=== PATIENT | female | born 1985 | race Caucasian/White ===

== ENCOUNTER 2018-09-30 23:02 | Inpatient (IN) | payer BC, MEDICARE ==
[~2018-09-30] VITALS: Ht 170.2 cm; Wt 60.3 kg
--- OUTSIDE RECORDS SUMMARY | 2018-09-30 23:04 | XMS REPORT | Continuity of Care Document ---
Author Author [facility] Organization [facility] Address [address] [place] [address] Phone Unavailable Care Team Providers Care Shale Miner Name Role Phone PHYSICIAN, NO PCP Unavailable Insurance Providers Guarantor [employer] Address [address] [place] [address] Email NONE Payer Self Pay Insurance Subscriber's Name Live Self Relationship Self / Same As Patient Group Number NA Group Name NA Advance Directives Directive Response Recorded Date/Time Patient/Family Given Education Material R/T Directives? Y - 05/30/18..AW 05/30/18 2:23pm Chief Complaint and Reason for Visit Chief Complaint Abdominal/GI/Nausea/Vomiting Reason for Visit Mesenteric adenitis [id number] Nausea Problems Active ProblemsNo active problem information available. Past Problems Medical Problem Onset Date Status Diverticula, intestine Unknown Acute Mesenteric adenitis Unknown Acute Nausea Unknown Acute Medications No medication information available. Social History Smoking Status Start Date Stop Date Never smoker Hospital Discharge Instructions No hospital discharge instruction information available. Plan of Care Discharge Date 05/30/18 6:47pm Instructions/Education Provided Mesenteric Adenitis, Adult Diverticulosis Forms Provided Portal Welcome Letter Prescriptions See Medication Section Referrals NO PHYSICIAN Additional Instructions/Education CIPRO 500MG TAB 1 BY MOUTH EVERY 12 HOURS X 7 DAYS. ZOFRAN 4MG TAB 1 BY MOUTH EVERY 4-6 HOURS NEEDED FOR NAUSEA #15. TRAMADOL 50MG TAB 1 [facility] MOUTH EVERY 4-6 HOURS NEEDED FOR PAIN#20. FOLLOW UP WITH YOUR GI SPECIALIST IN AM FOLLOW UP WITH YOUR PRIMARY CARE PROVIDER IN 2-3 DAY RETURN TO THE ER IF YOUR SYMPTOMS WORSEN Functional Status No functional status information available. Allergies, Adverse Reactions, Alerts Allergen Type Severity Reaction Status Last Updated Ampicillin ([id number]) Allergy Severe Active 05/30/18 Cefazolin Allergy Severe Active 05/30/18 Erythromycin ([id number]) Allergy Severe Active 06/06/11 Sulfacetamide ([id number]) Allergy Severe Active 05/30/18 Immunizations No immunization information available. Vital Signs Acute Vital Signs Vital Response Date/Time Blood Pressure 116/64 mm Hg 05/30/2018 6:47pm Pulse Pulse Rate (adult) 83 beats per minute (60 - 100) 05/30/2018 6:47pm Respiratory Rate 18 breaths per minute (10 - 24) 05/30/2018 6:47pm Temperature Source Oral 05/30/2018 6:47pm Height 5 ft 7 in 05/30/2018 2:23pm Weight 150 lb 05/30/2018 2:23pm Body Mass Index 23.5 kg/m^2 05/30/2018 2:23pm Results Laboratory Results Test Name Result Units Flags Reference Collection Date/Time Result Date/Time Comments White Blood Count 9.0 K/ul 4.0-11.5 05/30/2018 2:31pm 05/30/2018 2:56pm Red Blood Count 4.56 M/ul 3.80-5.20 05/30/2018 2:31pm 05/30/2018 2:56pm Hemoglobin 14.0 g/dl 10.5-15.7 05/30/2018 2:31pm 05/30/2018 2:56pm Hematocrit 40.1 % 34.0-50.0 05/30/2018 2:31pm 05/30/2018 2:56pm Mean Corpuscular Volume 87.9 fl 78-98 05/30/2018 2:31pm 05/30/2018 2:56pm Mean Corpuscular Hemoglobin 30.6 pg 26.2-33.4 05/30/2018 2:31pm 05/30/2018 2:56pm Mean Corpuscular Hemoglobin Concent 34.8 g/dl 31.5-36.2 05/30/2018 2:31pm 05/30/2018 2:56pm Red Cell Distribution Width 11.6 % 11.5-15.5 05/30/2018 2:31pm 05/30/2018 2:56pm Platelet Count 275 K/ul 137-338 05/30/2018 2:31pm 05/30/2018 2:56pm Mean Platelet Volume 8.3 fl L 8.4-11.8 05/30/2018 2:31pm 05/30/2018 2:56pm Neutrophils (%) (Auto) 77.9 % 44.4-80.1 05/30/2018 2:31pm 05/30/2018 2:56pm Lymphocytes (%) (Auto) 16.8 % 10.0-50.0 05/30/2018 2:31pm 05/30/2018 2:56pm Monocytes (%) (Auto) 4.3 % 3.6-12.04 05/30/2018 2:31pm 05/30/2018 2:56pm Eosinophils (%) (Auto) 0.1 % 0.0-5.41 05/30/2018 2:31pm 05/30/2018 2:56pm Basophils (%) (Auto) 0.9 % H 0.0-0.79 05/30/2018 2:31p 05/30/2018 2:56pm Urine Color YELLOW 05/30/2018 2:31p 05/30/2018 3:00pm Urine Appearance CLEAR CLEAR 05/30/2018 2:31p 05/30/2018 3:00pm Urine Glucose NEGATIVE NEGATIVE 05/30/2018 2:31p 05/30/2018 3:00pm Urine Bilirubin NEGATIVE NEGATIVE 05/30/2018 2:31p 05/30/2018 3:00pm Urine Ketones NEGATIVE NEGATIVE 05/30/2018 2:31p 05/30/2018 3:00pm Urine Specific Leming 1.015 1.003-1.030 05/30/2018 2:31p 05/30/2018 3:00pm Urine Blood MODERATE H NEGATIVE 05/30/2018 2:31p 05/30/2018 3:00pm Urine pH 8.500 5-9 05/30/2018 2:31p 05/30/2018 3:00pm Urine Protein NEGATIVE NEGATIVE 05/30/2018 2:31p 05/30/2018 3:00pm Urine Urobilinogen 0.2 E.U./dL 0.2-1.0 05/30/2018 2:31p 05/30/2018 3:00pm Urine Nitrate NEGATIVE NEGATIVE 05/30/2018 2:31p 05/30/2018 3:00pm Urine Leukocyte Esterase NEGATIVE NEGATIVE 05/30/2018 2:31p 05/30/2018 3:00pm Urine RBC 11-14 /hpf H 0-5 05/30/2018 2:31p 05/30/2018 3:00pm Urine WBC <1 /hpf 0-5 05/30/2018 2:31p 05/30/2018 3:00pm Urine Epithelial Cells 1-5 /hpf 0-5 05/30/2018 2:31p 05/30/2018 3:00pm Urine Bacteria TRACE /hpf None Detect 05/30/2018 2:31p 05/30/2018 3:00pm Urine Casts 2-5 /lpf None Detect 05/30/2018 2:31p 05/30/2018 3:00pm Urine Culture Reflexed NO 05/30/2018 2:31p 05/30/2018 3:00pm Random Glucose 118 mg/dL H 74-106 05/30/2018 2:31p 05/30/2018 3:06pm Blood Urea Nitrogen 11 mg/dL 6-05/30/2018 2:31p 05/30/2018 3:06pm Serum Osmolality 282 280-300 05/30/2018 2: 05/30/2018 3:06pm Creatinine 0.6 mg/dL 0.50-0.90 05/30/2018 2: 05/30/2018 3:06pm Glomerular Filtration Rate Calc > 60.00 05/30/2018 2:31p 05/30/2018 3:06pm GFR RESULTS ARE REPORTED IN mL/min/1.73m2. Normal GFR: >60mL/min Moderately decreased GFR: 30-59 mL/min Severely decreased GFR: 15-29 mL/min Kidney Failure (or Dialysis): <15 mL/min The calculated eGFR is not valid for patients younger than 18 years or older than 75 years. BUN/Creatinine Ratio 18.3 12-05/30/2018 2:31pm 05/30/2018 3:06pm Sodium Level 141 mmol/L 135-145 05/30/2018 2:31p 05/30/2018 3:06pm Potassium Level 4.0 mmol/L 3.5-5.2 05/30/2018 2:31p 05/30/2018 3:06pm Chloride Level 100 mmol/L 98-108 05/30/2018 2:31pm 05/30/2018 3:06pm Carbon Dioxide Level 25 mmol/L 21-32 05/30/2018 2:31pm 05/30/2018 3:06pm Anion Gap 20.0 mEq/L 12-20 05/30/2018 2:31pm 05/30/2018 3:06pm Calcium Level 10.1 mg/dL H 8.6-10.0 05/30/2018 2:31pm 05/30/2018 3:06pm Magnesium Level 1.7 mg/dL 1.6-2.6 05/30/2018 2:31pm 05/30/2018 3:06pm Total Protein 8.0 g/dL 6.6-8.7 05/30/2018 2:31pm 05/30/2018 3:06pm Albumin 5.3 g/dL H 3.5-5.2 05/30/2018 2:31p 05/30/2018 3:06pm Globulin 2.7 gm/dL 05/30/2018 2:31p 05/30/2018 3:06pm Albumin/Globulin Ratio 2.0 >1.0 05/30/2018 2:31p 05/30/2018 3:06pm Total Bilirubin 0.4 mg/dL 0.0-1.2 05/30/2018 2:31p 05/30/2018 3:06pm Aspartate Amino Transf (AST/SGOT) 18 U/L 15-32 05/30/2018 2:31pm 05/30/2018 3:06pm TEST RESULT INTERFERENCE DUE TO HEMOLYSIS. Alanine Aminotransferase (ALT/SGPT) 12 U/L 0-33 05/30/2018 2:31pm 05/30/2018 3:06pm Amylase Level 51 U/L 28-100 05/30/2018 2:31pm 05/30/2018 3:06pm Lipase 30 U/L 13-60 05/30/2018 2:31pm 05/30/2018 3:06pm Total Alkaline Phosphatase 97 U/L 35-105 05/30/2018 2:31pm 05/30/2018 3:06pm Procedures Procedure Status Date Provider(s) Computed tomography of abdomen and pelvis with contrast Completed 05/30/18 NIRAJ DICK [employer] Non-obstetrical transvaginal ultrasound of pelvis Completed 05/30/18 NIRAJ DICK [employer] Encounters Encounter Location Arrival/Admit Date Discharge/Depart Date Attending Provider Departed Emergency Room [facility] 05/30/18 2:16pm 05/30/18 6:47pm LEIGH LYONS MD Recent Diagnosis
--- OUTSIDE RECORDS SUMMARY | 2018-09-30 23:04 | XMS REPORT ---
Author Author [facility] Address Unknown Phone Unavailable Care Team Providers Care Coding Support Specialist Name Role Phone Biju Catalan Unavailable Unavailable Dave Taylor Unavailable Unavailable Yovani Archibald Unavailable Unavailable Problems This patient has no known problems. Allergies, Adverse Reactions, Alerts This patient has no known allergies or adverse reactions. Medications This patient has no known medications. Results Test Description Test Time Test Comments Text Results Atomic Results Result Comments Urine drug screen 2018-09-30 11:47:00 Phencyclidine [Presence] in Urine by Screen method (test nyfy=89101-6) Negative NEGATIVE CUT-OFF LEVEL: 25 ng/mL Benzodiazepines [Presence] in Urine by Screen method (test xhpg=76956-9) Negative NEGATIVE CUT-OFF LEVEL: 200 ng/mL Benzoylecgonine [Presence] in Urine by Screen method (test eozh=66225-9) Negative NEGATIVE CUT-OFF LEVEL: 300 ng/mL Amphetamines [Presence] in Urine by Screen method (test exmf=41668-8) Negative NEGATIVE CUT-OFF LEVEL: 1000 ng/mL Cannabinoids [Presence] in Urine by Screen method (test lqpk=40954-6) Positive NEGATIVE CUT-OFF LEVEL: 50 ng/mL Opiates [Presence] in Urine by Screen method (test ujmx=54281-3) Positive NEGATIVE CUT-OFF LEVEL: 2000 ng/mL Barbiturates [Presence] in Urine by Screen method (test chww=87263-4) Negative NEGATIVE CUT-OFF LEVEL: 200 ng/mL Screening urine methadone detection using 300 ng/ml cutoff (test enlg=66849-6) Negative NEGATIVE CUT-OFF LEVEL: 300 ng/mL These results are screening test methodology and are to be used only for medical purposes. Positive results have not been confirmed. Unconfirmed screening results must not be used for non-medical purposes (employment or legal testing). For a confirmed analytical result, GM/MS is the preferred method and must be sent to a Reference Laboratory. Comment Bed:14 Test Ordered to Rule Out VTE/DVT? VEanubojirb2083-69-45 10:33:00 * Test Item Value Reference Range Comments Urine color (test eovx=9855-3) YELLOW Urine appearance determination (test vaqj=9037-5) CLEAR Urine specific gravity measurement (test gtlo=9928-0) 1.015 1.005-1.030 Urine glucose detection (test jsiw=1469-9) Negative NEG Urine bilirubin detection (test uzwu=7251-4) Negative NEG Urine Ketones (test code=UKET) 2+ NEG Urine blood detection (test yuur=33099-5) Negative NEG Urine pH (test inbc=8582-6) 7.0 5.0-7.0 Urinalysis with microscopy (test giww=40419-2) NEGATIVE NEG Urine urobilinogen detection (test gscf=61210-4) 0.2 0.2-1.0 Urine Nitrate (test code=UNIT) NEGATIVE NEG Urine Leukocyte Esterase (test code=UESTR) NEGATIVE NEG Primary Language EnglishSalicylates [Mass/volume] in Serum or Wyiepi0533-52-77 08:37:00* Test Item Value Reference Range Comments Salicylates [Mass/volume] in Serum or Plasma (test zkot=9608-0) <1.7 mg/dL 2.8-20 Test Ordered to Rule Out VTE/DVT? NAbdomen Acute Sdjnvl0032-39-41 08:31:00[facility] [place] [address] RAD[facility]OLOGY SERVICES REPORT Name: LIVE ROWLEY Acct Number: [id number] :1985 Age:33 Sex:F Ord Phys: Sumeet Garcia MD Unit Number: [id number] [facility] Dr: GABO Status: ADM IN [place] [id number] Exam Date: 09/30/18 EXAM DESCR IPTION: RAD - Abdomen Acute Series - 09/30/2018 8:14 am CLINICAL HISTORY: Abdominal pain FINDINGS: The bowel gas pattern is unremarkable. F ree air is not seen beneath the diaphragm. Lungs appear clear. Multi ple calcifications are present the pelvis. These may all represent phleboliths. Signed By: Harman Taylor MD Signed AT: 09/30/18 0832 Abdomen Exam Mnyyxfi9654-51-59 08:29:00[place] [address] RADIOLOGY SERVICES REPORT Name: LIVE ROWLEY Acct Number: [id number] :1985 Age:33 Sex:F Ord Phys: Sumeet Garcia MD Unit Number: [id number] [facility] [address]: GABO Status: ADM IN [place] [address] Exam Date: 09/30/18 EXAM DESCRIPTION: US - Abdomen Exam Limited - 09/30/2018 8:23 am CLINICAL HISTORY: Abdominal pain. COMPARISON: None. FINDINGS: The gallbladder wall is not thickened. A gallstone is not seen. The biliary tree is normal caliber. IMPRESSION: Unremarkable gallbladder ultrasound. Signed By: Harman Taylor MD Signed AT: 09/30/18 0830 Ethanol [Mass/volume] in Serum or Plasma 2018-09-30 08:17:00* Test Item Value Reference Range Comments Ethanol [Mass/volume] in Serum or Plasma (test ocuw=1845-2) <3 mg/dL <3 (No normal range; <50 has limited clinical effect) Lactate [Moles/volume] in Serum or Xvyvzi9851-35-46 08:16:00* Test Item Value Reference Range Comments Lactate [Moles/volume] in Serum or Plasma (test ivii=5464-6) 1.2 mmol/L 0.4-2.0 Comment Bed:14Creatinine [Mass/volume] in Serum or Tzocpr5782-59-80 08:06:00* Test Item Value Reference Range Comments Creatinine [Mass/volume] in Serum or Plasma (test iynf=5012-9) 0.70 mg/dL 0.55-1.3 Glomerular Filtration Rate (test code=GFRT) > 90 >60 FOR CHRONIC KIDNEY DISEASE: GFR STAGE >60 1 or 2 30-59 3 15-29 4 <15(or dialysis) 5 The Glomerular Filtration Rate (GFR) has been calculated using the IDMS-Traceable MDRD Study Equation. Basic Metabolic Pueis8235-26-75 08:01:00* Test Item Value Reference Range Comments Serum or plasma sodium measurement (moles/volume) (test fqvi=7666-4) 141 mmol/L 136-145 Potassium [Moles/volume] in Serum or Plasma (test cckj=0828-9) 3.1 mmol/L 3.5-5.1 Chloride [Moles/volume] in Serum or Plasma (test hiiu=0431-3) 107 mmol/L 98-107 Carbon dioxide, total [Moles/volume] in Serum or Plasma (test zisv=1468-9) 27 mmol/L 21-32 Glucose [Mass/volume] in Serum or Plasma (test wgwu=0489-9) 124 mg/dL 74-106 Urea nitrogen [Mass/volume] in Serum or Plasma (test bdjp=9359-4) 10 mg/dL 7-18 Creatinine [Mass/volume] in Serum or Plasma (test kzvv=0091-5) 0.74 mg/dL 0.55-1.3 Glomerular Filtration Rate (test code=GFR) 90 mL =/>90 FOR CHRONIC KIDNEY DISEASE: GFR STAGE DESCRIPTION=/>90 STAGE 1 NORMAL--OR-- MINIMAL KIDNEY DAMAGE WITH NORMAL GFR 60-89 STAGE 2 MILD DECREASE IN GFR 30-59 STAGE 3 MODERATE DECREASE IN GFR 15-29 STAGE 4 SEVERE DECREASE IN GFR <15 STAGE 5 KIDNEY FAILURE The Glomerular Filtration Rate (GFR) has been calculated using the IDMS-Traceable MDRD Study Equation. Calcium [Mass/volume] in Serum or Plasma (test rpkb=39301-9) 8.7 mg/dL 8.5-10.1 Comment Bed:Liver (Hepatic) Isjblzbu5549-39-85 08:01:00* Test Item Value Reference Range Comments Aspartate aminotransferase [Enzymatic activity/volume] in Serum or Plasma by With P-5 (test ynud=63480-5) 14 U/L 15-37 Alanine aminotransferase [Enzymatic activity/volume] in Serum or Plasma by With P-5'- (test hwom=1190-2) 21 U/L 12-78 Alkaline phosphatase [Enzymatic activity/volume] in Serum or Plasma (test dnsz=2507-5) 46 U/L 45-117 Bilirubin.total [Mass/volume] in Serum or Plasma (test ukuu=0637-9) 0.5 mg/dL 0.2-1.0 Bilirubin.direct [Mass/volume] in Serum or Plasma (test tfcz=1313-2) 0.1 mg/dL 0-0.2 Protein [Mass/volume] in Serum or Plasma (test bahw=1006-2) 7.1 g/dL 6.4-8.2 Albumin [Mass/volume] in Serum or Plasma by Bromocresol purple (BCP) dye binding meth (test sydw=99910-1) 4.4 g/dL 3.4-5.0 Globulin (test code=GLOB) 2.7 g/dL 2.3-3.5 Albumin/Globulin Ratio (test code=A/G) 1.6 1.1-1.8 Comment Bed:14Acetaminophen [Mass/volume] in Serum or Zdscni5233-70-10 08:01:00 * Test Item Value Reference Range Comments Acetaminophen [Mass/volume] in Serum or Plasma (test iygj=3256-2) <2.0 ug/mL 10.0-30.0 PANIC VALUES: AFTER 4 HRS. INGESTION RESULT >200 AFTER 12 HRS. INGESTION RESULT >50 Comment Bed:14Lipase [Enzymatic activity/volume] in Serum or Rczbsy5487-27-98 08:01:00* Test Item Value Reference Range Comments Lipase [Enzymatic activity/volume] in Serum or Plasma (test wtwp=1792-4) 161 U/L 73-393 Comment Bed:14Prothrombin time (PT) with international normalized ratio (INR) 2018-09-30 08:00:00* Test Item Value Reference Range Comments PT Prothrombin Time (test code=PROTIME) 13.0 s 9.5-12.5 INR in Blood by Coagulation assay (test lgmm=57890-5) 1.11 Monitor pts using INR value (not prothrombin time) INR Coumadin Therapy: Low Range (prophylaxis) 2.0-3.0 High Range (high risk of clot formation) 2.5-3.5 Test Ordered to Rule Out VTE/DVT? N NPTT, Activated Partial Vvlgah6620-25-45 08:00:00* Test Item Value Reference Range Comments PTT, Activated Partial Thromb (test code=PTT) 28.1 s 24.3-36.9 Test Ordered to Rule Out VTE/DVT? N NComplete blood count (CBC) with automated white blood cell (WBC) bqkvnifskewk5540-67-85 07:41:00* Test Item Value Reference Range Comments White blood cell count (test zywl=OKE0952) 5.3 4.3-10.9 Blood erythrocytes count (number/volume) (test hfgv=49318-4) 3.80 M/ul 3.86-4.86 Hemoglobin measurement (test jjka=FVV9938) 11.6 g/dL 12.0-15.0 Blood hematocrit (volume fraction) (test wogb=21631-4) 34.4 % 36.0-45.0 MCV (test zrmg=XLM0302) 90.5 fL 80-100 30.4 MCHC (test code=MCHC) 33.6 g/dL 32.0-36.0 Platelets (test code=PLT) 232 152-406 Red Cell Distribution Width (test code=RDW) 14.2 % 12.1-15.2 Blood platelet mean volume (test zsgy=43641-5) 9.6 fL 7.6-11.3 Neutrophils % (test code=GARTH%) 65.7 % 41.7-73.7 Lymphocytes/leuk NFr Bld (test zsry=00532-9) 27.5 % 15.3-44.8 Monocyte percentage (test vbaq=7267-7) 6.3 % 3.3-12.3 Eosinophil % (test mixe=306-0) 0.0 % 0-4.4 Basophil % (test dsge=41037-3) 0.5 % 0-1.3 Absolute neutrophil count (test grmq=821-2) 3.4 1.8-8.0 Absolute lymphocyte count (test ccxn=57304-9) 1.4 0.7-4.9 Absolute monocyte count (test mldj=794-7) 0.3 0.1-1.3 Absolute Eosinophils (test code=EOA) 0.0 0-0.5 Absolute Basophils (test code=BASA) 0.0 0-0.5 Urine test at point of yivx5995-40-82 10:21:00* Test Item Value Reference Range Comments Urine Test (test code=UPG) NEG NEG Urine specific gravity measurement (test thhf=5191-9) 1.015 1.005-1.030 Tested by: BLOOD: TRACE GLUCOSE: NEG KETONES: TRACE LEUKOCYTES: NEG NITRITE: NEG PH: 7.0 PROTEIN: 1+ dh NEG dh TRACE NEG TRACE NEG NEG 7.0 1+ Y 1.015Urine dipstick testing at rceku-bp-ywxo2004-02-09 10:21:00* Test Item Value Reference Range Comments Urine glucose detection (test uybd=9663-3) Negative NEG Urine Ketones (test code=UKET) TRACE NEG Urine blood detection (test mcwz=77410-7) TRACE NEG Urine pH (test dklj=7649-1) 7.0 5.0-7.0 Urinalysis with microscopy (test zfzx=88178-3) 1+ NEG Urine Nitrate (test code=UNIT) NEGATIVE NEG Urine Leukocyte Esterase (test code=UESTR) NEGATIVE NEG Tested by: BLOOD: TRACE GLUCOSE: NEG KETONES: TRACE LEUKOCYTES: NEG NITRITE: NEG PH: 7.0 PROTEIN: 1+ dh NEG dh TRACE NEG TRACE NEG NEG 7.0 1+ Y 1.015Basic Metabolic Jhjnf1599-95-15 07:59:00* Test Item Value Reference Range Comments Serum or plasma sodium measurement (moles/volume) (test agvo=4512-0) 142 mmol/L 136-145 Potassium [Moles/volume] in Serum or Plasma (test nazk=5029-4) 4.2 mmol/L 3.5-5.1 Chloride [Moles/volume] in Serum or Plasma (test pfrp=4624-7) 108 mmol/L 98-107 Carbon dioxide, total [Moles/volume] in Serum or Plasma (test mgnx=4326-4) 26 mmol/L 21-32 Glucose [Mass/volume] in Serum or Plasma (test lzme=7419-9) 114 mg/dL 74-106 Urea nitrogen [Mass/volume] in Serum or Plasma (test zcuc=4945-6) 11 mg/dL 7-18 Creatinine [Mass/volume] in Serum or Plasma (test jmay=2661-2) 0.79 mg/dL 0.55-1.3 Glomerular Filtration Rate (test code=GFR) 83 mL =/>90 FOR CHRONIC KIDNEY DISEASE: GFR STAGE DESCRIPTION=/>90 STAGE 1 NORMAL--OR-- MINIMAL KIDNEY DAMAGE WITH NORMAL GFR 60-89 STAGE 2 MILD DECREASE IN GFR 30-59 STAGE 3 MODERATE DECREASE IN GFR 15-29 STAGE 4 SEVERE DECREASE IN GFR <15 STAGE 5 KIDNEY FAILURE The Glomerular Filtration Rate (GFR) has been calculated using the IDMS-Traceable MDRD Study Equation. Calcium [Mass/volume] in Serum or Plasma (test vcxp=06980-5) 9.9 mg/dL 8.5-10.1 Comment Bed:15Liver (Hepatic) Yyaoxfpf2126-49-94 07:59:00* Test Item Value Reference Range Comments Aspartate aminotransferase [Enzymatic activity/volume] in Serum or Plasma by With P-5 (test bknd=38296-4) 14 U/L 15-37 Alanine aminotransferase [Enzymatic activity/volume] in Serum or Plasma by With P-5'- (test ghhi=7223-1) 17 U/L 12-78 Alkaline phosphatase [Enzymatic activity/volume] in Serum or Plasma (test zbut=9622-7) 57 U/L 45-117 Bilirubin.total [Mass/volume] in Serum or Plasma (test fknr=6581-7) 0.4 mg/dL 0.2-1.0 Bilirubin.direct [Mass/volume] in Serum or Plasma (test irsz=1749-2) 0.1 mg/dL 0-0.2 Protein [Mass/volume] in Serum or Plasma (test glvj=1602-2) 8.5 g/dL 6.4-8.2 Albumin [Mass/volume] in Serum or Plasma by Bromocresol purple (BCP) dye binding meth (test smor=95350-9) 5.0 g/dL 3.4-5.0 Globulin (test code=GLOB) 3.5 g/dL 2.3-3.5 Albumin/Globulin Ratio (test code=A/G) 1.4 1.1-1.8 Comment Bed:15Lipase [Enzymatic activity/volume] in Serum or Zhvydm1647-62-29 07:59:00* Test Item Value Reference Range Comments Lipase [Enzymatic activity/volume] in Serum or Plasma (test jxll=9305-4) 168 U/L 73-393 Comment Bed:15Complete blood count (CBC) with automated white blood cell (WBC) whveegqqacwm4931-02-18 07:49:00* Test Item Value Reference Range Comments White blood cell count (test epre=TAM3252) 8.3 4.3-10.9 Blood erythrocytes count (number/volume) (test wkaa=32683-5) 4.69 M/ul 3.86-4.86 Hemoglobin measurement (test yajj=UWR4306) 14.2 g/dL 12.0-15.0 Blood hematocrit (volume fraction) (test vgmt=49483-5) 41.8 % 36.0-45.0 MCV (test syas=PVU6754) 89.2 fL 80-100 30.2 MCHC (test code=MCHC) 33.9 g/dL 32.0-36.0 Platelets (test code=PLT) 259 152-406 Red Cell Distribution Width (test code=RDW) 13.6 % 12.1-15.2 Blood platelet mean volume (test cvsn=66927-2) 9.8 fL 7.6-11.3 Neutrophils % (test code=GARTH%) 81.7 % 41.7-73.7 Lymphocytes/leuk NFr Bld (test ntzv=99993-8) 13.7 % 15.3-44.8 Monocyte percentage (test axdf=2258-4) 4.0 % 3.3-12.3 Eosinophil % (test kkpm=331-7) 0.3 % 0-4.4 Basophil % (test pyvc=21472-3) 0.3 % 0-1.3 Absolute neutrophil count (test gcec=889-5) 6.8 1.8-8.0 Absolute lymphocyte count (test gxwu=19414-6) 1.1 0.7-4.9 Absolute monocyte count (test yzth=957-6) 0.3 0.1-1.3 Absolute Eosinophils (test code=EOA) 0.0 0-0.5 Absolute Basophils (test code=BASA) 0.0 0-0.5 Abdomen Pelvis W Nlqkfyvb3040-02-86 12:31:00[place] [address] RADIOLOGY SERVICES REPORT Name: LIVE ROWLEY Acct Number: [id number] :1985 Age:33 Sex:F Ord Phys: Yovani Archibald MD Unit Number: [id number] [place] : GABO Status: REG ER Exam Date: 09/13/18 EXAM DESCRIPTION: CTAbdomen Pelvis W Contrast - 09/13/2018 12:21 pm CLINICAL HISTORY: Abdominal pain. epigastric - possible hernia;Abd pain COMPARISON: Abdomen Pelvis W Contrast dated 06/05/2018 TECHNIQUE: Biphasic CT imaging of the abdomen and pelvis was performed with 100 ml non-ionic IV contrast. All CT scans are performed using dose optimization technique as appropriate and may include automated exposure control or mA/KV adjustment according to patient size. FINDINGS: The lung bases are clear. The liver, spleen, pancreas, adrenal glands and kidneys are within normal limits. No bowel obstruction, free air, free fluid or abscess. The appendix is not identified as a discrete structure, however, no secondary findings of appendicitis are identified. No evidence of significant lymphadenopathy. No suspicious bony findings. IMPRESSI ON: No acute intra-abdominal or pelvic finding. Signed By: Ryley Faust MD Signed AT: 09/13/18 1231 Basic Metabolic Panel 2018-09-13 11:17:00* Test Item Value Reference Range Comments Serum or plasma sodium measurement (moles/volume) (test ebsm=0781-8) 141 mmol/L 136-145 Potassium [Moles/volume] in Serum or Plasma (test ltnh=4977-9) 3.8 mmol/L 3.5-5.1 Chloride [Moles/volume] in Serum or Plasma (test yvvk=6237-3) 108 mmol/L 98-107 Carbon dioxide, total [Moles/volume] in Serum or Plasma (test myji=9856-3) 26 mmol/L 21-32 Glucose [Mass/volume] in Serum or Plasma (test ujhl=7445-7) 94 mg/dL 74-106 Urea nitrogen [Mass/volume] in Serum or Plasma (test jwdr=2146-1) 11 mg/dL 7-18 Creatinine [Mass/volume] in Serum or Plasma (test dnwh=2938-8) 0.64 mg/dL 0.55-1.3 Glomerular Filtration Rate (test code=GFR) > 90 =/>90 FOR CHRONIC KIDNEY DISEASE: GFR STAGE DESCRIPTION=/>90 STAGE 1 NORMAL--OR-- MINIMAL KIDNEY DAMAGE WITH NORMAL GFR 60-89 STAGE 2 MILD DECREASE IN GFR 30-59 STAGE 3 MODERATE DECREASE IN GFR 15-29 STAGE 4 SEVERE DECREASE IN GFR <15 STAGE 5 KIDNEY FAILURE The Glomerular Filtration Rate (GFR) has been calculated using the IDMS-Traceable MDRD Study Equation. Calcium [Mass/volume] in Serum or Plasma (test ulwr=55044-5) 9.3 mg/dL 8.5-10.1 Comment Bed:19Complete blood count (CBC) with automated white blood cell (WBC) msxvzvxglskc9760-33-67 11:10:00* Test Item Value Reference Range Comments White blood cell count (test wmuc=BDH9134) 6.0 4.3-10.9 Blood erythrocytes count (number/volume) (test svzn=48655-1) 4.37 M/ul 3.86-4.86 Hemoglobin measurement (test eldc=FYV6798) 13.1 g/dL 12.0-15.0 Blood hematocrit (volume fraction) (test thmk=31312-7) 38.8 % 36.0-45.0 MCV (test myxf=XDX8309) 88.7 fL 80-100 30.0 MCHC (test code=MCHC) 33.8 g/dL 32.0-36.0 Platelets (test code=PLT) 274 152-406 Red Cell Distribution Width (test code=RDW) 13.9 % 12.1-15.2 Blood platelet mean volume (test tkkc=41367-6) 9.8 fL 7.6-11.3 Neutrophils % (test code=GARTH%) 76.6 % 41.7-73.7 Lymphocytes/leuk NFr Bld (test bdus=33156-1) 18.9 % 15.3-44.8 Monocyte percentage (test idzv=5758-7) 4.2 % 3.3-12.3 Eosinophil % (test hmqg=408-6) 0.1 % 0-4.4 Basophil % (test rdsm=05996-2) 0.2 % 0-1.3 Absolute neutrophil count (test bhuf=090-3) 4.6 1.8-8.0 Absolute lymphocyte count (test dqgq=43414-0) 1.1 0.7-4.9 Absolute monocyte count (test rgcz=204-5) 0.3 0.1-1.3 Absolute Eosinophils (test code=EOA) 0.0 0-0.5 Absolute Basophils (test code=BASA) 0.0 0-0.5 Urine test at point of xolh6134-71-60 20:41:00* Test Item Value Reference Range Comments Urine Test (test code=UPG) NEG NEG Urine specific gravity measurement (test eoqh=7478-5) 1.020 1.005-1.030 Tested by: ao BLOOD: 1+ GLUCOSE: NEG KETONES: 3+ LEUKOCYTES: NEG NITRITE: NEG PH : 7.0 PROTEIN: NEG ao NEG ao 1+ NEG 3+ NEG NEG 7.0 NEG Y 1.020Urine dipstick testing at irgpq-db-cxfn4227-10-24 20:41:00* Test Item Value Reference Range Comments Urine glucose detection (test kxqo=6845-8) Negative NEG Urine Ketones (test code=UKET) 3+ NEG Urine blood detection (test zgpy=42207-4) 1+ NEG Urine pH (test kniy=5292-9) 7.0 5.0-7.0 Urinalysis with microscopy (test qbeh=56246-7) NEGATIVE NEG Urine Nitrate (test code=UNIT) NEGATIVE NEG Urine Leukocyte Esterase (test code=UESTR) NEGATIVE NEG Tested by: ao BLOOD: 1+ GLUCOSE: NEG KETONES: 3+ LEUKOCYTES: NEG NITRITE: NEG PH : 7.0 PROTEIN: NEG ao NEG ao 1+ NEG 3+ NEG NEG 7.0 NEG Y 1.020Complete blood count (CBC) with automated white blood cell (WBC) hdvgmrypvnph1407-81-78 19:31:00* Test Item Value Reference Range Comments White blood cell count (test rwja=SPN0301) 10.8 4.3-10.9 Blood erythrocytes count (number/volume) (test dhdg=49929-6) 4.32 M/ul 3.86-4.86 Hemoglobin measurement (test krld=QVD3587) 13.0 g/dL 12.0-15.0 Blood hematocrit (volume fraction) (test jupr=63907-8) 37.5 % 36.0-45.0 MCV (test giky=31010-4) 86.7 fL 80-100 MCH (test zgbc=00080-5) 30.1 pg 27.0-35.0 MCHC (test code=MCHC) 34.8 g/dL 32.0-36.0 Platelets (test code=PLT) 315 152-406 Red Cell Distribution Width (test code=RDW) 13.5 % 12.1-15.2 Blood platelet mean volume (test nmga=82046-2) 9.5 fL 7.6-11.3 Neutrophils % (test code=GARTH%) 88.7 % 41.7-73.7 Lymphocytes/leuk NFr Bld (test kxpv=35594-0) 8.5 % 15.3-44.8 Monocyte percentage (test mbgr=6048-8) 2.7 % 3.3-12.3 Eosinophil % (test suvv=924-4) 0.0 % 0-4.4 Basophil % (test aitu=31970-0) 0.1 % 0-1.3 Absolute neutrophil count (test tvzy=779-6) 9.6 1.8-8.0 Absolute lymphocyte count (test rysl=62460-3) 0.9 0.7-4.9 Absolute monocyte count (test atow=174-0) 0.3 0.1-1.3 Absolute Eosinophils (test code=EOA) 0.0 0-0.5 Absolute Basophils (test code=BASA) 0.0 0-0.5 Blood smear scan ([facility])2018-06-05 19:31:00* Test Item Value Reference Range Comments Blood morphology interpretation narrative (test ikiu=01772-9) NOT SEEN NOT SEEN Abdomen Pelvis W Pwicreka9028-76-70 19:09:00[place] [address] [facility]OLOGY SERVICES REPORT Name: LIVE ROWLEY Acct Number: [id number] :1985 Age:33 Sex:F Ord Phys: Jose Regalado Unit Number: [id number] [facility] Dr: NONE Status: REG ER ER Exam Date: 06/05/18 EXAM DESCRIPTION: CTAbdomen Pelvis W Contrast - 06/05/2018 6:56 pm CLINICAL HISTORY: Abdominal pain. iv only;Abd pain COMPARISON: No comparisons TECHNIQUE: Biphasic CT imaging of the abdomen and pelvis was performed with 100 ml non-ionic IV contrast. All CT scans are performed using dose optimization technique as appropriate and may include automated exposure control or mA/KV adjustment according to patient size. FINDINGS: The lung bases are clear. The liver, spleen, pancreas, adrenal glands and kidneys are within normal limits. No bowel obstruction, free air, free fluid or abscess. The appendix is normal. The terminal ileum appears mildly thickened with a few surrounding right lower quadrant lymph nodes seen. The cervix appears bulky and there is trace pe lvic free fluid. No suspicious bony findings. IMPRESSION: Terminal ileum thickening is seen with mild surrounding lymph nodes could indicate inflam matory bowel disease/Crohn's disease. Bulky cervix is seen with trace pelv ic free fluid. Advise correlation with Pap smear if not recently performed. Signed By: Ryley Faust MD Signed AT: 06/05/181908 Basic Metabolic Kkwwy2717-90-64 18:06:00* Test Item Value Reference Range Comments Serum or plasma sodium measurement (moles/volume) (test pnnb=9833-9) 139 mmol/L 136-145 Potassium [Moles/volume] in Serum or Plasma (test xjvj=9319-4) 3.2 mmol/L 3.5-5.1 Chloride [Moles/volume] in Serum or Plasma (test sdxq=7358-6) 105 mmol/L 98-107 Carbon dioxide, total [Moles/volume] in Serum or Plasma (test bbhr=4798-9) 24 mmol/L 21-32 Glucose [Mass/volume] in Serum or Plasma (test iska=1342-6) 151 mg/dL 74-106 Urea nitrogen [Mass/volume] in Serum or Plasma (test vown=2811-1) 10 mg/dL 7-18 Creatinine [Mass/volume] in Serum or Plasma (test pwgc=3349-6) 0.80 mg/dL 0.55-1.3 Glomerular Filtration Rate (test code=GFR) 82 mL =/>90 FOR CHRONIC KIDNEY DISEASE: GFR STAGE DESCRIPTION=/>90 STAGE 1 NORMAL--OR-- MINIMAL KIDNEY DAMAGE WITH NORMAL GFR 60-89 STAGE 2 MILD DECREASE IN GFR 30-59 STAGE 3 MODERATE DECREASE IN GFR 15-29 STAGE 4 SEVERE DECREASE IN GFR <15 STAGE 5 KIDNEY FAILURE The Glomerular Filtration Rate (GFR) has been calculated using the IDMS-Traceable MDRD Study Equation. Calcium [Mass/volume] in Serum or Plasma (test pive=89041-3) 9.5 mg/dL 8.5-10.1 Comment Bed:8Liver (Hepatic) Xgnkafoj4408-06-53 18:06:00* Test Item Value Reference Range Comments Aspartate aminotransferase [Enzymatic activity/volume] in Serum or Plasma by With P-5 (test bigv=33363-9) 14 U/L 15-37 Alanine aminotransferase [Enzymatic activity/volume] in Serum or Plasma by With P-5'- (test qcrp=3583-5) 19 U/L 12-78 Alkaline phosphatase [Enzymatic activity/volume] in Serum or Plasma (test xeiy=4882-2) 89 U/L 45-117 Bilirubin.total [Mass/volume] in Serum or Plasma (test wxbw=3013-8) 0.4 mg/dL 0.2-1.0 Bilirubin.direct [Mass/volume] in Serum or Plasma (test vzju=5053-1) 0.1 mg/dL 0-0.2 Protein [Mass/volume] in Serum or Plasma (test iupv=9157-7) 8.1 g/dL 6.4-8.2 Albumin [Mass/volume] in Serum or Plasma by Bromocresol purple (BCP) dye binding meth (test bhqa=01985-6) 4.3 g/dL 3.4-5.0 Globulin (test code=GLOB) 3.8 g/dL 2.3-3.5 Albumin/Globulin Ratio (test code=A/G) 1.1 1.1-1.8 Comment Bed:8Lipase [Enzymatic activity/volume] in Serum or [id number] 18:06:00* Test Item Value Reference Range Comments Lipase [Enzymatic activity/volume] in Serum or Plasma (test kcpa=8453-7) 129 U/L 73-393 Comment Bed:8Creatinine [Mass/volume] in Serum or [id number] 18:03:00* Test Item Value Reference Range Comments Creatinine [Mass/volume] in Serum or Plasma (test zwso=8902-4) 0.90 mg/dL 0.55-1.3 Glomerular Filtration Rate (test code=GFRT) 72 mL >60 FOR CHRONIC KIDNEY DISEASE: GFR STAGE >60 1 or 2 30-59 3 15-29 4 <15(or dialysis) 5 The Glomerular Filtration Rate (GFR) has been calculated using the IDMS-Traceable MDRD Study Equation.
[2018-09-30] MEDS ORDERED: PANTOPRAZOLE 40 MG 10ML VIAL IV STA (23:19)
[2018-09-30] MEDS ORDERED: ONDANSETRON HCL INJ 2MG/ML 2ML 2 MG/ML VIAL IV STA (23:19)
[2018-09-30] MEDS ORDERED: DICYCLOMINE HCL 20 MG/2 ML VIAL IM ONE (23:30)
[2018-09-30] MEDS ORDERED: SODIUM CHLORIDE 0.9% 1000ML 1,000 ML IV ONE (23:30)
[2018-09-30 23:34] LABS: BASOPHILS % 0.7 % (0.0-1.0); HEMATOCRIT 32.1 % (34.2-44.1); HEMOGLOBIN 11.2 g/dL (12.0-16.0); LYMPHOCYTES # (AUTO) 1.9 (1.0-3.2); MEAN CORPUSCULAR HEMOGLOBIN 30.5 pg (28-32); MEAN CORPUSCULAR HGB CONC 34.9 g/dL (31-35); MEAN CORPUSCULAR VOLUME 87.5 fL (81-99); MONOCYTES # (AUTO) 0.5 (0.2-0.8); MONOCYTES % 8.2 % (4.4-11.3); NEUTROPHILS # (AUTO) 3.3 (2.1-6.9); NEUTROPHILS % 57.9 % (38.7-80.0); PLATELET COUNT 243 x10e3/uL (140-360); RED BLOOD COUNT 3.67 x10e6/uL (3.6-5.1); RED CELL DISTRIBUTION WIDTH 12.8 % (11.7-14.4)
[2018-09-30] MEDS ORDERED: PROMETHAZINE HCL (IM) 25 MG/ML VIAL ONE (23:35)
[2018-09-30] MEDS ORDERED: PROMETHAZINE 25MG/ NS 50ML (IV) IV ONE (23:45)
[2018-09-30 23:57] LABS: ALANINE AMINOTRANSFERASE 16 IU/L (0-55); ALBUMIN 4.7 g/dL (3.5-5.0); ALBUMIN/GLOBULIN RATIO 2.2 (0.8-2.0); ALKALINE PHOSPHATASE 38 IU/L (40-150); AMYLASE 43 U/L (25-125); BLOOD UREA NITROGEN 7 mg/dL (7-26); BUN/CREATININE RATIO 9 (6-25); CALCIUM 9.4 mg/dL (8.4-10.2); CARBON DIOXIDE 22 mmol/L (22-29); CHLORIDE 103 mmol/L (98-107); CREATININE, SERUM 0.79 mg/dL (0.57-1.11); EST GLOMERULAR FILTRATION RATE > 60 ML/MIN (60-); GLUCOSE 109 mg/dL (74-118); LIPASE 43 U/L (8-78); SODIUM 139 mmol/L (136-145)
[2018-10-01 00:08] LABS: AMPHETAMINES SCREEN,URINE NEGATIVE (NEGATIVE); BENZODIAZEPINES SCREEN,URINE NEGATIVE (NEGATIVE); PHENCYCLIDINE SCREEN,URINE NEGATIVE (NEGATIVE)
[2018-10-01 00:09] LABS: CLARITY,URINE CLEAR (CLEAR); COLOR,URINE YELLOW (YELLOW); LEUKOCYTE ESTERASE ,URINE NEGATIVE (NEGATIVE)
[2018-10-01 00:10] LABS: BILIRUBIN,URINE NEGATIVE (NEGATIVE); KETONES,URINE 1+ (NEGATIVE); NITRITE,URINE NEGATIVE (NEGATIVE); PROTEIN,URINE DIPSTICK NEGATIVE (NEGATIVE); URINE UROBILINOGEN 0.2 mg/dL (0.2 - 1)
[2018-10-01 00:18] LABS: BACTERIA,URINE FEW /HPF; EPITHELIAL CELLS,URINE FEW /LPF; MUCUS,URINE MANY (RARE)
[2018-10-01] MEDS ORDERED: KCL 20MEQ/.9 SOD CHL 1,000 ML IV ONE (00:45)
--- NOTE | 2018-10-01 01:45 | Diagnostic Imaging Report ---
EXAM: Abdomen 2 Views, chest 1 view INDICATION: ^abd pain ^[id number] ^[id number] ^Y COMPARISON: None FINDINGS: No focal lung consolidation. No pleural effusion or pneumothorax. Normal cardiac silhouette. Nonobstructive bowel gas pattern. No signs of pneumoperitoneum. Multiple pelvic fullness. No osseous abnormality. IMPRESSION: 1. Nonobstructive bowel gas pattern. 2. Clear lungs. Signed by: Dr. Amor Billings MD on 10/01/2018 1:42 AM
[2018-10-01] MEDS ORDERED: METOCLOPRAMIDE HCL 10 MG/2ML VIAL IV ONE (02:15)
[2018-10-01] MEDS ORDERED: METOCLOPRAMIDE HCL 10 MG/2ML VIAL ONE (02:18)
[2018-10-01] MEDS ORDERED: PANTOPRAZOL 40MG/SOD CHL 0.9% 50 ML IV ONE (02:29)
[2018-10-01] MEDS ORDERED: PANTOPRAZOLE INJ 40 MG in SODIUM CHLORIDE 0.9% 50ML 50 ML IV SCH (02:30)
[2018-10-01] MEDS: PANTOPRAZOLE INJ 40 MG in SODIUM CHLORIDE 0.9% 50ML 50 ML IV SCH ×6 (02:53→23:18)
[2018-10-01] MEDS: KCL 20MEQ/.9 SOD CHL 1,000 ML IV SCH ×3 (03:37→18:49)
[2018-10-01] MEDS: ONDANSETRON HCL INJ 2MG/ML 2ML 2 MG/ML VIAL IV PRN ×4 (03:37→23:44)
[2018-10-01] MEDS: PROMETHAZINE 12.5MG/ NACL 0.9% 12.5 MG/50 ML BAG IV PRN ×2 (03:40→07:46)
[2018-10-01] MEDS ORDERED: DICYCLOMINE HCL20 MG PO (03:50)
[2018-10-01] MEDS ORDERED: PANTOPRAZOLE SO40 MG PO (03:50)
[2018-10-01] MEDS ORDERED: ULTRAM 50MG50 MG PO (03:50)
[2018-10-01] MEDS ORDERED: SERTRALINE HCL25 MG PO (03:50)
[2018-10-01] MEDS ORDERED: PROMETHAZINE HC25 M1 PO (03:50)
[2018-10-01] MEDS ORDERED: SPRINTEC1 EACH PO (03:50)
[2018-10-01] MEDS ORDERED: ONDANSETRON HCL4 MG SL (03:50)
[2018-10-01] MEDS ORDERED: HYDROCODON-ACE1 EA11 PO (03:50)
[2018-10-01] MEDS: METOCLOPRAMIDE HCL 10 MG/2ML VIAL IV SCH ×4 (05:19→23:43)
--- NOTE | 2018-10-01 08:08 | NUR ---
PT DRY HEAVING ON ASSESSMENT C/O EPIGASTRIC NON RADIATING BURNING STABBING PAIN /
--- NOTE | 2018-10-01 08:09 | NUR ---
PT STARTED TO FALL ASLEEP DURING ASSESSMENT
[2018-10-01] MEDS ORDERED: SODIUM CHLORIDE 0.9% IV NR (11:00)
[2018-10-01] MEDS ORDERED: PROCHLORPERAZINE EDISYLATE IV NR (11:00)
[2018-10-01] MEDS ORDERED: MIDAZOLAM HCL 2 MG/2 ML VIAL ONE (14:27)
[2018-10-01] MEDS ORDERED: FENTANYL CITRATE/PF 100MCG/2 ML INJ ONE (14:27)
[2018-10-01] MEDS ORDERED: PROPOFOL IV EMULSION 10 MG/ML 50 ML VIAL ONE (14:34)
--- NOTE | 2018-10-01 15:16 | NUR ---
recvd patient from ER. AAOx3, assisted her to bed, not in any distress, call light in reach, resp even and unlabored, family at bed side
--- NOTE | 2018-10-01 15:42 | NUR ---
patient off the unit for EGD, stable
[2018-10-01 16:19] VITALS: BP 136/84
[2018-10-01 16:43] VITALS: BP 136/84
[2018-10-01] MEDS: CEFTRIAXONE SOD 1 GM/NS 50 ML 50 ML IV SCH (18:05)
--- NOTE | 2018-10-01 18:05 | NUR ---
patient back to room fro EGD, Colonoscopy, AAOx3, denies any pain this time, no dizziness or vomiting, not in any distress, family at bed side
[2018-10-01] MEDS ORDERED: PANTOPRAZOLE 40 MG 10ML VIAL ONE ×2 (18:23→23:09)
[2018-10-01] MEDS ORDERED: SODIUM CHLORIDE 0.9% 50ML 50 ML ONE ×2 (18:29→23:10)
--- NOTE | 2018-10-01 19:13 | NUR ---
PT IS RESTING IN BED WITH FAMILY AT BEDSIDE. NO RESPIRATORY DISTRESS NOTED. BED IN THE LOWEST POSITION, LOCKED, AND CALL LIGHT WITHIN REACH. WILL CONTINUE TO MONITOR.
--- NOTE | 2018-10-01 19:39 | NUR ---
PAGE DR FOR ORDERS. AWAITING CALL BACK.
[2018-10-01 19:50] VITALS: BP 129/77
--- NOTE | 2018-10-01 19:53 | NUR ---
PER DR ORONA PT CAN HAVE A REGULAR DIET. WILL CONTINUE TO MONITOR.
[2018-10-01] MEDS: ACETAMINOPHEN 1000 MG/100 ML IV PRN (23:52)
[2018-10-02] VITALS (8 sets, daily range): BP systolic 118–146; BP diastolic 66–90
[2018-10-02] MEDS: PROMETHAZINE 12.5MG/ NACL 0.9% 12.5 MG/50 ML BAG IV PRN ×5 (00:26→22:00)
[2018-10-02] MEDS: PANTOPRAZOL 40MG/SOD CHL 0.9% 50 ML IV SCH ×4 (00:42→17:26)
[2018-10-02] MEDS ORDERED: SODIUM CHLORIDE 0.9% 50ML 50 ML ONE ×3 (03:33→16:50)
[2018-10-02] MEDS: PANTOPRAZOLE INJ 40 MG in SODIUM CHLORIDE 0.9% 50ML 50 ML IV SCH (03:37)
[2018-10-02] MEDS: KCL 20MEQ/.9 SOD CHL 1,000 ML IV SCH ×2 (03:37→13:42)
[2018-10-02 05:38] LABS: BASOPHILS % 0.3 % (0.0-1.0); EOSINOPHILS % 0.3 % (0.0-6.0); HEMATOCRIT 31.8 % (34.2-44.1); HEMOGLOBIN 11.1 g/dL (12.0-16.0); LYMPHOCYTES # (AUTO) 1.4 (1.0-3.2); LYMPHOCYTES % 20.2 % (18.0-39.1); MEAN CORPUSCULAR HEMOGLOBIN 30.4 pg (28-32); MEAN CORPUSCULAR HGB CONC 34.9 g/dL (31-35); MEAN CORPUSCULAR VOLUME 87.1 fL (81-99); MONOCYTES # (AUTO) 0.4 (0.2-0.8); MONOCYTES % 5.7 % (4.4-11.3); NEUTROPHILS % 73.2 % (38.7-80.0); PLATELET COUNT 218 x10e3/uL (140-360); RED BLOOD COUNT 3.65 x10e6/uL (3.6-5.1); RED CELL DISTRIBUTION WIDTH 12.4 % (11.7-14.4)
[2018-10-02] MEDS: METOCLOPRAMIDE HCL 10 MG/2ML VIAL IV SCH ×3 (05:53→17:26)
[2018-10-02 05:55] LABS: ALANINE AMINOTRANSFERASE 16 IU/L (0-55); ALBUMIN/GLOBULIN RATIO 2.4 (0.8-2.0); ALKALINE PHOSPHATASE 39 IU/L (40-150); AMYLASE 31 U/L (25-125); BLOOD UREA NITROGEN 6 mg/dL (7-26); BUN/CREATININE RATIO 8 (6-25); CALCIUM 8.6 mg/dL (8.4-10.2); CARBON DIOXIDE 20 mmol/L (22-29); CHLORIDE 101 mmol/L (98-107); CREATININE, SERUM 0.71 mg/dL (0.57-1.11); EST GLOMERULAR FILTRATION RATE > 60 ML/MIN (60-); GLUCOSE 90 mg/dL (74-118); LIPASE 22 U/L (8-78); SODIUM 134 mmol/L (136-145)
[2018-10-02 06:06] LABS: MAGNESIUM 1.6 MG/DL (1.3-2.1); PHOSPHORUS 3.4 MG/DL (2.3-4.7)
[2018-10-02 06:28] LABS: THYROID STIMULATING HORMONE 0.964 uIU/mL (0.350-4.940)
--- NOTE | 2018-10-02 06:42 | History and Physical ---
ZANE COMPLAINT: Intractable nausea and vomiting. HISTORY OF PRESENT ILLNESS: The patient is a 33-year-old female with recurrent intractable nausea and vomiting. The patient had an extensive workup previously, where she had a colonoscopy and EGD, both back in May of 2018 and subsequently in August of 2018. Patient previously was diagnosed with Crohn's disease. She was on multiple medications, but for the past week or so patient is having worsen intractable nausea and vomiting. She went to several hospital ERs for help and was released without any relief of her symptoms per family members at present. She was in [place] approximately 1-2 weeks ago and was hospitalized for approximately 5 days. Subsequently, went home, did not have any further endoscopy then, but she still is having nausea and vomiting associated with abdominal pain. Patient in desparation went down south to [facility] ED and then up in [facility] ED but was released without admission for evaluation or treatment. Patient is now here at direct of her new GI ruby on rails consultant Dr. Andrew Tejeda to come to [facility] ED for evaluation and admission. She has persistent nausea and vomiting. Dr. Venus Tejeda was asked to see the patient by the family. He has not seen the patient as yet, but he is on consult at this time. The patient is having intractable nausea and vomiting along with severe abdominal pain. PPI, drip,ondansetron, and Phenergan along with Reglan all initiated. The patient is still persistently having nausea and vomiting on admission. She had gallbladder workup in the recent past, showed she does have some diminished functioning per family. She also complains of epigastric and generalized abdominal pain. Imaging of the abdomen series show a nonobstructive bowel pattern with clear lungs. The patient had multiple imaging tests in the past. PAST MEDICAL HISTORY: Recently diagnosed with questionable Crohn's disease. The patient has endometriosis. ALLERGIES: PENICILLIN, SULFA, AND ERYTHROMYCIN BASE. HOME MEDICATIONS: Dicyclomine, [place], Sprintec, ondansetron, Protonix, promethazine, Zoloft, and tramadol. PHYSICAL EXAMINATION: VITAL SIGNS: Temperature is 98, blood pressure 132/82, pulse rate 73, respirations 18. GENERAL: The patient is having intractable nausea and vomiting. HEENT: Normocephalic, atraumatic. NECK: Supple grossly. PULMONARY: Clear. CARDIOVASCULAR: Regular rate and rhythm. ABDOMEN: Soft. Generalized discomfort. No rebound or guarding. EXTREMITIES: No cyanosis or edema. NEUROLOGIC: No gross focal deficits. LABORATORY DATA: Sodium 139, potassium 3.0, chloride 103, bicarb 22, BUN 7, creatinine 0.7, and glucose 109. Liver enzymes unremarkable. Amylase and lipase are normal. Toxicology is positive for opiates and marijuana. Urinalysis, wbc's 11-20, bacteria few, 1+ ketone, negative nitrite. WBC is 5.7, hemoglobin 11.2, hematocrit 32.1, platelets 243. IMPRESSION: 1. Intractable nausea and vomiting, etiology unclear. 2. Hypokalemia. 3. Slight dehydration. PLAN: Continue with electrolyte replacement. IV fluids. Antiemetic. Consultation with Dr. Lott. We will obtain further workup pending on GI workup. MD COLEMAN Valdez/PUJA /[id number] MTDD
[2018-10-02 06:49] LABS: FOLATE 18.6 ng/mL (7.0-15.4)
--- NOTE | 2018-10-02 08:30 | NUR ---
Pt received resting in bed with family at bedside. Pt is NPO for MRI& MRCP. All meds given as ordered. Emotional support given. Fall precautions maintained. Will monitor
[2018-10-02] MEDS ORDERED: MAGNESIUM SULFATE 2GM/50ML IV ONE (08:45)
[2018-10-02] MEDS ORDERED: POTASSIUM CHLORIDE 10MEQ EA PO NR (09:00)
[2018-10-02] MEDS ORDERED: MAGNESIUM SULFATE 2GM/50ML 50 ML IV ONE (09:00)
[2018-10-02] MEDS: ONDANSETRON HCL INJ 2MG/ML 2ML 2 MG/ML VIAL IV PRN ×2 (10:21→21:00)
[2018-10-02] MEDS ORDERED: POTASSIUM CHLORIDE 20MEQ/100ML 200 ML IV ONE (10:30)
[2018-10-02] MEDS ORDERED: POTASSIUM CHLORIDE 20MEQ/15ML UDC PO NR (10:30)
--- NOTE | 2018-10-02 15:51 | NUR ---
CASE MANAGEMENT INITIAL ASSESSMENT Limb Driver to bedside to discuss plan of care with patient/family. CM/SW role and care transitions discussed. Anticipated discharge plan discussed along with duration of care. CM/SW discussed patients right to make decisions in care. CM/SW work hours given. Patient lives: W AND 5 CHILDREN, 4 BOYS AND 1 GIRL Admit/Transfer: VIA ER W C/O CHEST BURNING AND ABDOMINAL PAIN Hospital/ER visits since last admit: PT HAS BEEN TO 7 OR 8 HOSPITALS OVER A 2 WEEK PERIOD. STATES ABD PAIN W 30LB WEIGHT LOSS; ONSET 05/2018. PT RECENTLY LOST 15LBS MORE. [facility] PT WAS SEEING A GI DOC THAT DIAGNOSED PT W CHRON'S. PT WAS TAKING HUMIRA AND IMURAN. [facility] PT WAS IN [facility] FOR 5DAYS AND STOPPED IMURAN 2 WEEKS AGO. PT WAS TAKING PAIN MEDS AND WAS TOLD [facility] WOULD HELP W NAUSEA. STATES IT WORKED FOR AWHILE, BUT HAS SINCE STOPPED ONCE NAUSEA RETURNED. POA/Emergency contact: SKYLER SMITH / [phone] Current/Previous Home Health: NONE PCP/Follow-up Care: JOAO TARIQ Current/Previous DME: NONE Other Services: NONE Employment Status: HAS [employer] Areas of Concerns: PT'S SYMPTOMS NOT RESOLVING AND NOONE IS ABLE TO GIVE A REASON WHY Referral Needs: NONE AT THIS TIME Education Needs: NONE AT THIS TIME IMM/HYMAN given and signed (if applicable): N/A Goal for discharge: HOME W/O PAIN AND NAUSEA CM/SW left business card at the bedside with contact information. Name and number was also written on the patients whiteboard. Patient verbalized understanding of discussion. CM will follow-up with ongoing discharge and transition of care needs.
--- NOTE | 2018-10-02 15:55 | NUR ---
Pt left for MRI
[2018-10-02] MEDS: CEFTRIAXONE SOD 1 GM/NS 50 ML 50 ML IV SCH (16:30)
--- NOTE | 2018-10-02 16:31 | NUR ---
Pt returned from MRI
[2018-10-02] MEDS: ACETAMINOPHEN 1000 MG/100 ML IV PRN (16:34)
--- NOTE | 2018-10-02 17:04 | Diagnostic Imaging Report ---
MRCP CPT code: 10682 History: Intractable nausea/vomiting, chronic epigastric pain Comparison: None. Technique: Multiplanar, multisequence images of the abdomen were obtained per MRCP protocol. 3D volume rendered reformation images of the biliary tree were performed. No intravenous gadolinium was administered. Findings: There is motion degradation on multiple pulse sequences. MRCP: The intra and extrahepatic biliary ducts are normal in morphology without beading or narrowing. The cystic duct is poorly visualized due to motion artifact. The common bile duct measures 4 mm in diameter without intraluminal filling defect. Pancreas duct: No dilatation Liver: Normal signal. No mass Spleen: Normal size and signal. No mass. Pancreas: Normal T1 and T2 signal. No mass Kidneys: No hydronephrosis. No mass Adrenal glands: No mass Lymph nodes: No enlarged abdominal or retroperitoneal lymph nodes. Bowel: There is fluid in the stomach and proximal small bowel without dilatation. Visualized large bowel is normal in diameter. Peritoneum/retroperitoneum: No free fluid or fluid collection. Lung bases: Clear. Bones: Normal marrow signal. No focal osseous lesions. IMPRESSION: 1. Motion degraded exam. No gross abnormalities of the biliary tree, gallbladder, or pancreas duct to explain nausea and vomiting. Consider reevaluation of the abdomen with CT which would overcome motion artifact. 2. No evidence of cholelithiasis or choledocholithiasis. Thank you for your referral. Signed by: Dr. Bina Purcell MD on 10/02/2018 5:01 PM
[2018-10-02] MEDS ORDERED: ACETAMINOPHEN 1000 MG/100 ML IV PRN (19:15)
--- NOTE | 2018-10-02 19:58 | NUR ---
RECEIVED PT IN BED AOX3 .CRYING .C/O NAUSEA VOMITING RESPIRATIONS ARE EVEN AND UNLABORED .FAMILY AT THE BEDSIDE .CALL LIGHT WITH IN REACH
--- NOTE | 2018-10-02 22:41 | NUR ---
report recieved on this patient at this time. patient recieved awake, alert, lying quietly in bed. pm assessment complete. patient instructed to call for assistance when needed.
--- NOTE | 2018-10-02 22:41 | NUR ---
PT IS GIVEN TO ANOTHER NURSE AND REPORT GIVEN TO THE NURSE .
[2018-10-03] VITALS: BP 150/87
--- NOTE | 2018-10-03 | NUR ---
lrg loose bm noted. patient assisted to shower per request. patient c/o pain off and on. patient says, " The reglan seems to help some with the pain. "
[2018-10-03] MEDS: PANTOPRAZOL 40MG/SOD CHL 0.9% 50 ML IV SCH ×4 (03:30→18:39)
[2018-10-03 04:00] VITALS: BP 150/99
[2018-10-03] MEDS: KCL 20MEQ/.9 SOD CHL 1,000 ML IV SCH (04:00)
--- NOTE | 2018-10-03 05:00 | NUR ---
patient c/o severe abd pain. patient sitting up in her bed crying. call placed to Dr. Tejeda re: abd pain. no return call recieved. patient requesting help to show for second time tonight. patient states, " Taking a shower helps soothe the pain. " mother in law remains at patients side.
--- NOTE | 2018-10-03 05:49 | NUR ---
return call recieved from Dr. Tejeda re: abd pain. new order noted.
[2018-10-03] MEDS: METOCLOPRAMIDE HCL 10 MG/2ML VIAL IV SCH ×5 (05:59→23:16)
[2018-10-03] MEDS ORDERED: HYOSCYAMINE SULFATE 0.5 MG/ML INJ IV ONE (06:00)
--- NOTE | 2018-10-03 06:00 | NUR ---
patient out shower and back in bed, patient medicated with scheduled reglan and one time dose of levsin 0.5mg ivp. ivf and iv protonix remains off per patient request. patient states, " Can we leave the iv's off for awhile because i keep running to the bathroom. "
[2018-10-03 06:07] LABS: BASOPHILS % 0.5 % (0.0-1.0); EOSINOPHILS % 0.2 % (0.0-6.0); HEMATOCRIT 33.8 % (34.2-44.1); HEMOGLOBIN 11.8 g/dL (12.0-16.0); LYMPHOCYTES # (AUTO) 1.8 (1.0-3.2); LYMPHOCYTES % 28.2 % (18.0-39.1); MEAN CORPUSCULAR HEMOGLOBIN 30.3 pg (28-32); MEAN CORPUSCULAR HGB CONC 34.9 g/dL (31-35); MEAN CORPUSCULAR VOLUME 86.7 fL (81-99); MONOCYTES # (AUTO) 0.5 (0.2-0.8); MONOCYTES % 7.1 % (4.4-11.3); NEUTROPHILS % 63.5 % (38.7-80.0); PLATELET COUNT 252 x10e3/uL (140-360); RED CELL DISTRIBUTION WIDTH 12.6 % (11.7-14.4)
--- NOTE | 2018-10-03 06:29 | NUR ---
patient back in shower with assistance.
[2018-10-03 06:39] LABS: ANION GAP 17.2 mmol/L (8-16); BLOOD UREA NITROGEN 7 mg/dL (7-26); BUN/CREATININE RATIO 10 (6-25); CALCIUM 8.8 mg/dL (8.4-10.2); CARBON DIOXIDE 18 mmol/L (22-29); CHLORIDE 101 mmol/L (98-107); CREATININE, SERUM 0.69 mg/dL (0.57-1.11); EST GLOMERULAR FILTRATION RATE > 60 ML/MIN (60-); GLUCOSE 76 mg/dL (74-118); POTASSIUM 3.2 mmol/L (3.5-5.1); SODIUM 133 mmol/L (136-145)
[2018-10-03] MEDS: PROMETHAZINE 12.5MG/ NACL 0.9% 12.5 MG/50 ML BAG IV PRN (08:17)
[2018-10-03 08:24] VITALS: BP 152/98
[2018-10-03 08:30] VITALS: BP 152/98
[2018-10-03] MEDS ORDERED: PROMETHAZINE 25MG/ NS 50ML (IV) IV PRN (08:30)
--- NOTE | 2018-10-03 08:30 | NUR ---
Pt received resting in bed. Call chen within reach. Dr. Conde called, and Javier ordered. Emotional support given. All meds given as ordered. Will monitor
[2018-10-03] MEDS: LORAZEPAM INJ 2 MG/ML VIAL IV PRN ×2 (08:53→17:09)
[2018-10-03] MEDS: KCL 40MEQ/0.9% SOD CHL 1,000 ML IV SCH (10:03)
--- NOTE | 2018-10-03 10:27 | NUR ---
Pt is leaving for HIDA scan
--- NOTE | 2018-10-03 12:00 | NUR ---
Pt returned from HIDA scan. EJ 33% (abnormal). Will inform Dr. Sarmiento
[2018-10-03] MEDS ORDERED: FENTANYL 25 MCG/HR PATCH TOP NR (13:00)
[2018-10-03] MEDS: ALPRAZOLAM 0.25 MG TAB PO PRN (13:44)
--- NOTE | 2018-10-03 13:45 | Consultation ---
DATE OF CONSULTATION: October 03, 2018 CHIEF COMPLAINT: Abdominal pain and vomiting. HISTORY OF PRESENT ILLNESS: The patient is a 33-year-old female with 3-month history of persistent, progressive, intractable vomiting and pain in the epigastric area. She also had diarrhea. No fever or chills. Workup including upper and lower GI endoscopy has shown questionable Crohn disease. She had no gallstone on ultrasound. SURGICAL HISTORY: Unremarkable. PAST MEDICAL HISTORY: Endometriosis, questionable Crohn disease. ALLERGIES: SHE IS ALLERGIC TO PENICILLIN, SULFA, ERYTHROMYCIN. SOCIAL HABITS: Negative. PHYSICAL EXAMINATION VITALS: Stable. Afebrile. GENERAL: The patient is awake, in significant discomfort from pain. HEENT: Sclerae anicteric. NECK: Supple. LUNGS: Clear. HEART: Regular rate and rhythm. ABDOMEN: Soft with voluntary guarding in the epigastric area. No rebound. EXTREMITIES: Without cyanosis or edema. White cell count is 6, hemoglobin of 11.8. Creatinine of 0.7. Liver function tests within normal limits. Abdominal x-rays show nonobstructive bowel. MRCP showed no bile duct stone or gallstone. ASSESSMENT: Intractable pain and vomiting in young woman with epigastric pain. HIDA scan pending. We will follow patient closely with you. Job#: [id number] CHRISTOPHER
--- NOTE | 2018-10-03 14:20 | NUR ---
Dr. Sarmiento returned to state that pt's gallbladder needs to be removed. Orders given, consented for Lap Shannan. Emotional support given. Xanax given as ordered. Call chen within reach. Will monitor
--- NOTE | 2018-10-03 14:50 | Diagnostic Imaging Report ---
ADDENDUM #1 Addendum to original report of 10/03/2017 The original report states that the gallbladder ejection fraction of 33% is normal. It is in fact abnormal normal GBEF is >40%. Corrected impression should read: Impression: 1. Filling of the gallbladder excludes the diagnosis of acute cystic duct obstruction/acute cholecystitis. 2. Abnormal gallbladder ejection fraction of 33% supports the clinical diagnosis of chronic cholecystitis/gallbladder dyskinesia. Signed by: Dr. Aaliyah Salazar M.D. on 10/03/2018 5:10 PM ORIGINAL REPORT Hepatobiliary Scan with Gallbladder Ejection Fraction Clinical information: 33 F with abdominal pain and nausea x 2 weeks Report: Following intravenous administration of 6.4 millicuries of Tc-99m mebrofenin, dynamic images of the abdomen in the anterior projection were obtained through 55 minutes. Sincalide (CCK analog) 1.3 micrograms was administered intravenously over 30 minutes with additional imaging for determination of gallbladder ejection fraction. Perfusion to the liver is normal. Extraction of tracer from the blood pool by the liver parenchyma is normal. Tracer is seen promptly within the biliary tract. The gallbladder begins to fill by 20 minutes post-injection of tracer and fills adequately. Tracer is seen in the small bowel by 50 minutes. The gallbladder ejection fraction with administration of sincalide is 33% (normal greater than 40%). Impression: 1. Filling of the gallbladder excludes the diagnosis of acute cystic duct obstruction/acute cholecystitis. 2. Normal gallbladder ejection fraction of 33% does not support the clinical diagnosis of chronic cholecystitis/gallbladder dyskinesia. Signed by: Dr. Aaliyah Salazar M.D. on 10/03/2018 2:47 PM
[2018-10-03] MEDS: ONDANSETRON HCL INJ 2MG/ML 2ML 2 MG/ML VIAL IV PRN (15:38)
[2018-10-03 15:47] VITALS: BP 137/81
[2018-10-03] MEDS ORDERED: HYOSCYAMINE 0.375 MG TABCR PO SCH (17:00)
[2018-10-03] MEDS: HYOSCYAMINE 0.125 MG TAB PO SCH ×2 (17:09→23:16)
[2018-10-03] MEDS: CEFTRIAXONE SOD 1 GM/NS 50 ML 50 ML IV SCH (17:09)
[2018-10-03] MEDS: SUCRALFATE 1 GM TAB PO SCH ×2 (17:09→20:43)
[2018-10-03 18:04] LABS: FERRITIN 29.07 ng/mL (4.63-204.00)
--- NOTE | 2018-10-03 19:00 | NUR ---
patient received awake, alert, lying quietly in bed. no c/o pain noted at this time. ivf/iv protonix continue to infuse without difficulty. pm assessment complete. patient instructed to call for assistance when needed.
[2018-10-03 19:32] LABS: BILIRUBIN,URINE NEGATIVE (NEGATIVE); CLARITY,URINE SL CLOUDY (CLEAR); COLOR,URINE STRAW (YELLOW); KETONES,URINE 2+ (NEGATIVE); LEUKOCYTE ESTERASE ,URINE NEGATIVE (NEGATIVE); NITRITE,URINE NEGATIVE (NEGATIVE); PROTEIN,URINE DIPSTICK NEGATIVE (NEGATIVE); URINE UROBILINOGEN 0.2 mg/dL (0.2 - 1)
[2018-10-03 19:42] LABS: BACTERIA,URINE PRESENT /HPF; EPITHELIAL CELLS,URINE RARE /LPF; RBC,URINE >50 /HPF (0-5)
[2018-10-03 20:00] VITALS: BP 113/71
[2018-10-04] VITALS (8 sets, daily range): BP systolic 108–140; BP diastolic 61–84
--- NOTE | 2018-10-04 | NUR ---
patient appears to be resting soundly. ivf/iv protonix continue to infuse without difficulty. family remains at the bedside.
[2018-10-04] MEDS: PANTOPRAZOL 40MG/SOD CHL 0.9% 50 ML IV SCH ×4 (01:46→20:20)
[2018-10-04] MEDS: KCL 40MEQ/0.9% SOD CHL 1,000 ML IV SCH ×3 (01:46→23:20)
[2018-10-04] MEDS: METOCLOPRAMIDE HCL 10 MG/2ML VIAL IV SCH ×4 (05:27→23:21)
[2018-10-04] MEDS: HYOSCYAMINE 0.125 MG TAB PO SCH ×4 (05:27→23:21)
[2018-10-04 06:39] LABS: MAGNESIUM 1.9 MG/DL (1.3-2.1); PHOSPHORUS 3.7 MG/DL (2.3-4.7)
[2018-10-04 07:27] LABS: ANION GAP 15.8 mmol/L (8-16); BLOOD UREA NITROGEN 10 mg/dL (7-26); BUN/CREATININE RATIO 14 (6-25); CALCIUM 8.6 mg/dL (8.4-10.2); CARBON DIOXIDE 19 mmol/L (22-29); CHLORIDE 102 mmol/L (98-107); CREATININE, SERUM 0.71 mg/dL (0.57-1.11); EST GLOMERULAR FILTRATION RATE > 60 ML/MIN (60-); GLUCOSE 63 mg/dL (74-118); POTASSIUM 3.8 mmol/L (3.5-5.1); SODIUM 133 mmol/L (136-145)
[2018-10-04] MEDS: SUCRALFATE 1 GM TAB PO SCH ×4 (07:30→20:06)
--- NOTE | 2018-10-04 07:30 | NUR ---
PATIENT ASSISTED TO THE RESTROOM AND BACK TO BED, NO RESPIRATORY DISTRESS OBSERVED. IV PROTONIX IN PROGRESS. BED IN LOWER POSITION, CALL LIGHT AT REACH.
--- NOTE | 2018-10-04 08:33 | Consultation ---
DATE OF CONSULTATION: October 03, 2018 She is a 33-year-old lady. I saw her first time this week in my office when she came with abdominal pain. This pain has been in the past few months. She has been on numerous healthcare facilities, seeking answers to her pain. In the past, she was told that she has Crohn disease; however, at [facility] after workup, she was told that she does not have Crohn disease and they stopped her Imuran and Humira, but she continued to have abdominal pain which, because of that, she visited several emergency rooms and hospitals and the only thing to control her pain was morphine and Dilaudid. The pain has been worsening and recently not controlled with regular Bentyl. Described it as aching and burning at different sites of her abdomen. Severe, almost unbearable, and only relieved by morphine and Dilaudid. Associated with heartburn, acid reflux, nausea, vomiting, loose stools, and weight loss. She had a CT scan of the abdomen and pelvis with contrast September 13 of this month with no findings. She had another CT in May 2018, showed prominence of right lower quadrant mesenteric lymph node, possible mesenteric adenitis. She had transvaginal pelvic ultrasound May 2018, unremarkable. She had colonoscopy August 2018 with random biopsy to rule out Crohn disease and no evidence of microscopic colitis on the biopsy. She had upper endoscopy May 2018, showed small hiatal hernia, mild hemorrhagic gastritis in the proximal antrum, but the biopsy is negative for Helicobacter pylori or intestinal metaplasia. August of this year, her lab tests were normal. On last Sunday, I repeated her upper endoscopy and colonoscopy. Her upper endoscopy showed gastritis and hiatal hernia. Biopsy of course is still pending. Her colonoscopy went to the terminal ileum and was normal tissue and random biopsies were done. SOCIALLY: She is . Has 4 kids. She is employed. She does not drink. She does not smoke. ALLERGIES: SHE IS ALLERGIC TO PENICILLIN AND SULFATHIAZOLE. She was in [facility] and she was at [facility]. EXAM GENERAL: Awake, alert, oriented. VITAL SIGNS: Hemodynamically stable. Afebrile. NECK: Supple. LUNGS: Clear. HEART: Regular-regular rhythm. ABDOMEN: Soft. Tender to exam and no acute sign. LABS: Her current lab tests this admission, CBC, comprehensive panel normal, except her hemoglobin 11, hematocrit 33. She had increase in RBCs and WBCs in the urine. Currently she is on ceftriaxone. No urine culture was done. My HIDA scan was unremarkable, although verbally the crime scene evidence technician mentioned to Dr. Sarmiento, the surgeon, that she had excruciating pain when injecting the material during her test. Has not been verified yet this information. I advised Dr. Sarmiento that prior to her gallbladder removal which was scheduled tomorrow, this piece of information needs to be verified. Otherwise, her MRCP is normal, HIDA scan normal. There is no indication to remove her gallbladder and liver function is normal. So today, I am ordering urine culture on her. Check sedimentation rate. Check MERVAT level, serum reactive protein. I started her on Carafate and I am doing anemia workup. Job#: [id number] CHRISTOPHER
[2018-10-04] MEDS ORDERED: HYDROMORPHONE 1MG/1ML INJ IV PRN (09:30)
[2018-10-04] MEDS ORDERED: HYDROCODONE/APAP 10MG-325MG TAB PO PRN (09:30)
[2018-10-04] MEDS ORDERED: HYDROMORPHONE 2MG/ML 2 MG/ML ML IV PRN (09:45)
--- NOTE | 2018-10-04 11:39 | NUR ---
PATIENT ASSISTED WITH SHOWER, LINENS CHANGED. IN BED WITH CALL LIGHT AT REACH.
--- NOTE | 2018-10-04 13:25 | NUR ---
PATIENT OFF UNIT TO OR.
[2018-10-04] MEDS ORDERED: BUPIVACAINE 0.5%/EPI 30 ML SDV INJ ONE (14:00)
--- NOTE | 2018-10-04 14:18 | Progress Note ---
DATE: 10/03/2018 Pain Management Progress Note REASON FOR FOLLOWUP: Pain management. SUBJECTIVE: The patient is a 33-year-old young white female with history of multiple issues, ongoing pain. Pain is 10/10 on a scale of 0 to 10. She came with abdominal pain, excruciating pain, being admitted, underwent EGD, found to have gastritis, cholecystitis, and pancreatitis. PHYSICAL EXAMINATION: GENERAL: In pain, but not in acute distress, her family is still in the room. HEENT: Normocephalic. NECK: Supple. LUNGS: Air entry bilaterally. HEART: Regular rate and rhythm. ABDOMEN: steam drier tender in the epigastric region. EXTREMITIES: No edema. Able to move all 4 extremities. NEUROLOGIC: Awake and alert. Answering all questions. Her family is still in the room. Rest of the examination unchanged. Explained all benefits, risks, and alternatives. MEDICATIONS: Current medications consist of: 1. Hydrocodone. 2. Maalox. 3. Phenergan. 4. Sertraline. 5. Tramadol. Home medications: 1. Sucralfate. 2. Clonazepam. She is on lorazepam and Xanax at this moment. I explained to the patient this is not advisable. Having history of nausea, vomiting, hiatal hernia in the past, gastritis, in the past. tomorrow for cholecystectomy. Discussed with Dr. Tejeda. All possible options were discussed with the family in all details, all possible options of pain management surgery may help her and she might need prolonged pain management after surgery has been done considering her chronic pain status. We will follower her while she is inpatient. MD MIRIAN Woods/PUJA /[id number]
[2018-10-04] MEDS ORDERED: MEPERIDINE HCL INJ 25 MG/ML VIAL ONE (15:34)
[2018-10-04] MEDS ORDERED: HYDROMORPHONE 2MG/ML 2 MG/ML ML ONE (16:03)
[2018-10-04] MEDS ORDERED: ROCURONIUM BROMIDE 10 MG/ML 5ML VIAL ONE (16:49)
[2018-10-04] MEDS ORDERED: KETOROLAC TROMETHAMINE 30 MG/ML VIAL ONE (16:49)
[2018-10-04] MEDS ORDERED: CEFTRIAXONE SOD 1 GM VIAL ONE (16:49)
[2018-10-04] MEDS ORDERED: PROPOFOL IV EMULSION 10 MG/ML 20 ML VIAL ONE (16:49)
[2018-10-04] MEDS ORDERED: LIDOCAINE HCL 2% LOCAL INJ 5 ML SDV VIAL INJ ONE (16:49)
[2018-10-04] MEDS ORDERED: ONDANSETRON HCL INJ 2MG/ML 2ML 2 MG/ML VIAL ONE (16:49)
[2018-10-04] MEDS ORDERED: SEVOFLURANE INHAL SOLN 250 ML PEN BTL ONE (16:49)
[2018-10-04] MEDS ORDERED: DEXAMETHASONE SOD PHOS INJ 4 MG/ML VIAL ONE (16:49)
--- NOTE | 2018-10-04 16:50 | NUR ---
PATIENT BACK TO UNIT FROM OR. REPORT RECEIVED FROM LYNN GARDINER. PATIENT ALERT AND RESPONSIVE. HAD A LAP VALDEZ, 4 TROCAR SITES TO ABDOMEN DRY AND INTACT. ASSISTED TO THE RESTROOM AND BACK TO BED. VOIDED LARGE AMOUNT OF YELLOW URINE TO TOILET. RECEIVED PAIN MEDICATION BEFORE RETURNING TO UNIT. V/S 98.2-89-17-140/84 AND 92% ON RA. WILL CLOSELY MONITOR.
[2018-10-04] MEDS: CEFTRIAXONE SOD 1 GM/NS 50 ML 50 ML IV SCH (17:01)
[2018-10-04] MEDS ORDERED: FENTANYL CITRATE/PF 100MCG/2 ML INJ ONE (17:53)
[2018-10-04] MEDS ORDERED: MIDAZOLAM HCL 2 MG/2 ML VIAL ONE (17:53)
--- NOTE | 2018-10-04 19:02 | NUR ---
patient received awake, alert, sitting up in bed. vss. no c/o pain noted at this time. ivf/iv protonix continue to infuse without difficulty. pm assessment complete. family noted at the bedside. patient/family instructed to call for assistance when needed.
[2018-10-05] VITALS (7 sets, daily range): BP systolic 108–134; BP diastolic 65–94
[2018-10-05] MEDS: PANTOPRAZOL 40MG/SOD CHL 0.9% 50 ML IV SCH ×2 (01:00→05:24)
[2018-10-05] MEDS: HYOSCYAMINE 0.125 MG TAB PO SCH ×3 (05:24→18:24)
[2018-10-05] MEDS: METOCLOPRAMIDE HCL 10 MG/2ML VIAL IV SCH ×2 (05:24→12:48)
--- NOTE | 2018-10-05 07:20 | NUR ---
PATIENT IN BED RESTING WITH NO RESPIRATORY DISTRESS. 4 TROCAR SITES TO ABDOMEN WITH DRESSING DRY AND INTACT. BED IN LOWER POSITION, CALL LIGHT AT REACH.
[2018-10-05] MEDS: SUCRALFATE 1 GM TAB PO SCH ×4 (07:45→21:38)
[2018-10-05] MEDS ORDERED: FENTANYL 25 MCG/HR PATCH TOP SCH (09:30)
[2018-10-05] MEDS: KCL 40MEQ/0.9% SOD CHL 1,000 ML IV SCH (11:00)
--- NOTE | 2018-10-05 11:00 | NUR ---
PATIENT AMBULATED IN HALLWAY WITH FAMILY MEMBER, NO RESPIRATORY DISTRESS OBSERVED. BACK IN BED WITH CALL LIGHT AT REACH.
--- NOTE | 2018-10-05 13:53 | Progress Note ---
DATE: October 04, 2018 Ms. Self was in the operating room today when I saw her undergoing laparoscopic cholecystectomy. Her lab tests came back showing ESR normal, serum reactive protein normal, and iron saturation low at 12, probably due to heavy menstrual period. TSH is still pending. Reticulocyte percent is 2.1. Other than this, nothing to add today to her care. We will see how she will progress after her cholecystectomy. Job#: [id number] KYLE
[2018-10-05] MEDS ORDERED: METOCLOPRAMIDE HCL 10 MG/2ML VIAL IV PRN (14:45)
--- NOTE | 2018-10-05 15:47 | NUR ---
PATIENT SITTING AT BED SIDE TALKING TO FAMILY MEMBERS VISITING. CALL LIGHT AT REACH.
[2018-10-05] MEDS: CEFTRIAXONE SOD 1 GM/NS 50 ML 50 ML IV SCH (17:18)
--- NOTE | 2018-10-05 19:14 | NUR ---
Report received and walking rounds complete. Pt up at bedside returning from the bathroom. Pt has no complaints of pain. All safety measures ensured and pt call chen near.
--- NOTE | 2018-10-05 21:42 | NUR ---
Pt had small brown loose stool with some mucus, slight pink in color. Pt had no complaints of pain. Informed pt to let me know when she has another BM and if she has any pain. Pt verbalized understanding.
[2018-10-06] VITALS: BP 102/61
[2018-10-06] MEDS: HYOSCYAMINE 0.125 MG TAB PO SCH ×3 (00:37→12:00)
[2018-10-06] MEDS: ALPRAZOLAM 0.25 MG TAB PO PRN (00:46)
[2018-10-06 04:00] VITALS: BP 108/71
[2018-10-06 05:36] LABS: BASOPHILS % 0.5 % (0.0-1.0); EOSINOPHILS % 0.2 % (0.0-6.0); HEMATOCRIT 32.5 % (34.2-44.1); HEMOGLOBIN 11.2 g/dL (12.0-16.0); LYMPHOCYTES # (AUTO) 2.8 (1.0-3.2); LYMPHOCYTES % 50.3 % (18.0-39.1); MEAN CORPUSCULAR HGB CONC 34.5 g/dL (31-35); MEAN CORPUSCULAR VOLUME 87.1 fL (81-99); MONOCYTES # (AUTO) 0.5 (0.2-0.8); MONOCYTES % 9.1 % (4.4-11.3); NEUTROPHILS # (AUTO) 2.2 (2.1-6.9); NEUTROPHILS % 39.7 % (38.7-80.0); PLATELET COUNT 233 x10e3/uL (140-360); RED BLOOD COUNT 3.73 x10e6/uL (3.6-5.1)
[2018-10-06 06:12] LABS: ANION GAP 11.2 mmol/L (8-16); BLOOD UREA NITROGEN < 5 mg/dL (7-26); CALCIUM 8.8 mg/dL (8.4-10.2); CARBON DIOXIDE 28 mmol/L (22-29); CHLORIDE 104 mmol/L (98-107); CREATININE, SERUM 0.67 mg/dL (0.57-1.11); EST GLOMERULAR FILTRATION RATE > 60 ML/MIN (60-); GLUCOSE 129 mg/dL (74-118); POTASSIUM 3.2 mmol/L (3.5-5.1); SODIUM 140 mmol/L (136-145)
[2018-10-06 06:14] LABS: BUN/CREATININE RATIO 7 (6-25)
[2018-10-06] MEDS: SUCRALFATE 1 GM TAB PO SCH ×2 (06:43→12:20)
--- NOTE | 2018-10-06 07:07 | NUR ---
Report given and walking rounds completed
--- NOTE | 2018-10-06 07:12 | NUR ---
PATIENT OUT OF BED TO CHAIR, NO COMPLAIN VOICED. ALL PERSONAL CLOSE TO PATIENT. CALL LIGHT AT REACH.
[2018-10-06 07:15] VITALS: BP 120/72
[2018-10-06 08:09] VITALS: BP 120/72
--- NOTE | 2018-10-06 09:15 | NUR ---
CALL PLACED TO MD REGARDING ABNORMAL LAB RESULT, AWAITING CALL BACK.
[2018-10-06 11:53] VITALS: BP 118/76
--- NOTE | 2018-10-06 11:54 | NUR ---
MD IN AT THIS TIME TO SEE PATIENT. NOTIFIED OF ABNORMAL LAB RESULT, NEW ORDER RECEIVED.
[2018-10-06] MEDS ORDERED: POTASSIUM CHLORIDE 10MEQ EA PO NR (12:00)
--- NOTE | 2018-10-06 13:40 | NUR ---
PATIENT DISCHARGED HOME. DISCHARGE INSTRUCTIONS, PRESCRIPTIONS, AND FOLLOW UP GIVEN TO PATIENT, SHE VERBALIZED UNDERSTANDING. IV TO RIGHT AND LEFT WRIST REMOVED WITH TIP INTACT. ALL PERSONAL ITEMS TAKEN WITH PATIENT. REFUSED WHEEL CHAIR, BUT WAS ACCOMPANIED BY HOSPITAL STAFF TO FRONT LOBBY IN STABLE CONDITION.
--- NOTE | 2018-10-07 03:32 | Discharge Summary ---
CONSULTANTS: 1. Jacques Sarmiento M.D. 2. Venus Tejeda M.D. 3. Sarah Stafford M.D., Pain Management. FINAL DIAGNOSES: 1. Intractable nausea and vomiting associated with severe hypokalemia. The patient was in significant abdominal pain. 2. Status post EGD and colonoscopy, finding of gastritis and no other significant abnormality. 3. Status post laparoscopic cholecystectomy, secondary to dysfunction gallbladder. 4. Dehydration, resolved. 5. Protein deficiency, secondary to acute abdominal problem. SUMMARY: The patient is a 33-year-old female with multiple hospitalizations and multiple emergency room visits due to significant intractable nausea and vomiting. Please review the patient's history. She was hospitalized previously in [place] recently for the same problem. Extensive workup per the patient and family without resolution of her symptoms. At one time, she was diagnosed with Crohn disease and was given medication for the disease. The patient subsequently saw Dr. Tejeda and went to the emergency room and Dr. Tejeda saw the patient here. Dr. Venus Tejeda is one of her several gastroenterologists who saw the patient. Here, the patient had multiple tests as well, abdominal series, MRCP, and subsequently HIDA scan. The patient's MRCP was unremarkable. The HIDA scan showed possible gallbladder dysfunction. Dr. Jacques Sarmiento was consulted and he looked at the imaging himself. Because of the patient's significant intractable nausea and vomiting and pain, she underwent laparoscopic cholecystectomy done by Dr. Sarmiento. Significantly improved symptoms chung after the surgery. She was able to eat and tolerate all her diet. She had her surgery on October 04, 2018, and today is October 06, 2018, the patient tolerated a GI soft diet. She did not have any symptoms of nausea and vomiting. She did better. Potassium is 3.2, it will be replaced prior to the discharge. The patient was discharged home with Tylenol No. #4 as needed for pain and hydroxyzine 25 mg t.i.d. as well. The patient will take Carafate suspension 1 g before meals and at bedtime, Protonix 40 mg daily, Zofran as needed for nausea, Levsin 0.125 mg before meal, and Xanax 0.25 mg q.6 p.r.n. for anxiety. She will resume all home medication as well. The patient is to follow up with her marketing project coordinator or Dr. Venus Tejeda, her marketing project coordinator here and Dr. Jacques Sarmiento for postoperative care. I also suggest the patient to follow up with her family doctor for adjustment of her medication if needed. The patient is otherwise stable, discharged home today. MD COLEMAN Valdez/PUJA /[id number]
--- NOTE | 2018-11-04 23:48 | Operative Report ---
DATE OF PROCEDURE: 10/04/2018 SURGEON: Jacques Sarmiento MD PREOPERATIVE DIAGNOSIS: Chronic cholecystitis. POSTOPERATIVE DIAGNOSIS: Chronic cholecystitis. PROCEDURE: Laparoscopic cholecystectomy. ANESTHESIA: General endotracheal. INDICATIONS FOR SURGERY: A 33-year-old female with history of chronic epigastric abdominal pain. HIDA scan showed marginal ejection fraction below normal. The cholecystokinin given during the study reproduced the patient's pain. At this point, she consented for laparoscopic cholecystectomy. Attendant risks discussed. PROCEDURE FINDING: Chronic cholecystitis. DESCRIPTION OF PROCEDURE: The patient was brought to the OR and intubated. Abdomen prepped with alcohol and draped in sterile fashion. An infraumbilical incision was made and a 10 mm port inserted. Insufflation then began. Under direct vision, another port site was placed in the midepigastric right upper quadrant. The gallbladder was noted to be chronically inflamed. Fundus retracted in cephalad direction. Next, the gallbladder retracted laterally with blunt and sharp dissection. Cystic artery and cystic duct isolated in junction, where the common bile duct was noted before triple clipping the cystic artery and cystic duct and divided them between clips. The gallbladder detached from the liver with cautery and taken out through umbilical port site. Operative field was then irrigated. Hemostasis was achieved. All ports were removed under direct vision. Fascia closure with 0 Vicryl. Skin was closed with subcuticular stitch. The patient was extubated and transferred to recovery room. ESTIMATED BLOOD LOSS: 5 mL. Jacques Sarmiento MD DNL/MODL /[id number]
== END 2018-10-06 13:44 | disposition home or self-care (01) | DRG 418 ==
LOC: ER 23:02 → INTOOBSV 10-01 02:32 → ERHOLD 10-01 02:32 → MED/SURG3 10-01 15:13 → OBSVTOIN 10-02 08:41
PROVIDERS: ADMIT Internal Medicine; ATTEND Internal Medicine
PROC: 0DB98ZX Excision of Duodenum, Via Natural or Artificial Opening Endoscopic, Diagnostic (ICD-10-PCS; 2018-10-01)
PROC: 0DB68ZX Excision of Stomach, Via Natural or Artificial Opening Endoscopic, Diagnostic (ICD-10-PCS; 2018-10-01)
PROC: 0DBG8ZX Excision of Left Large Intestine, Via Natural or Artificial Opening Endoscopic, Diagnostic (ICD-10-PCS; principal; 2018-10-01 14:30)
PROC: 0DBF8ZX Excision of Right Large Intestine, Via Natural or Artificial Opening Endoscopic, Diagnostic (ICD-10-PCS; 2018-10-01 14:30)
PROC: 0FT44ZZ Resection of Gallbladder, Percutaneous Endoscopic Approach (ICD-10-PCS; 2018-10-04)
DX: K81.1 Chronic cholecystitis (principal); K50.90 Crohn's disease, unspecified, without complications; E87.6 Hypokalemia; K29.70 Gastritis, unspecified, without bleeding; R10.13 Epigastric pain; E86.0 Dehydration; R19.7 Diarrhea, unspecified; K44.9 Diaphragmatic hernia without obstruction or gangrene; K31.7 Polyp of stomach and duodenum; Z88.1 Allergy status to other antibiotic agents; Z88.0 Allergy status to penicillin; Z88.2 Allergy status to sulfonamides; K64.8 Other hemorrhoids; R07.9 Chest pain, unspecified
CPT/HCPCS: 36415; 43239; 45380; 74022; 74181; 78227; 80048; 80053; 80307; 81001; 81025; 82150; 82607; 82728; 82746; 82747; 82948; 83540; 83690; 83735; 84100; 84443; 84466; 85025; 85045; 85651; 86039; 86140; 87086; 88304; 88305; 88312; 93005; 96361; 96365; 96372; 96374; 96375; 99284; A9537; G0378; J0500; J0696; J0780; J1100; J1885; J1980; J2001; J2060; J2175; J2250; J2405; J2550; J2765; J3475; J3480; J7030